=== PATIENT | female | born 1960 | race African-American/Black ===

== ENCOUNTER 2021-04-24 12:25 | Emergency (ER) | payer OTHER ==
[~2021-04-24] VITALS: Ht 149.9 cm; Wt 86.4 kg
[~2021-04-24 12:25] MED LIST: AMLO-257 PO
[2021-04-24] MEDS ORDERED: IBUPROFEN 600 MG TABLET PO ONE (14:15)
[2021-04-24 15:05] LABS: APPEARANCE,URINE CLEAR (CLEAR); BILIRUBIN,URINE NEGATIVE (NEGATIVE); GLUCOSE, URINE (UA) NEGATIVE (NEGATIVE); KETONES,URINE NEGATIVE (NEGATIVE); LEUKOCYTE ESTERASE ,URINE NEGATIVE (NEGATIVE); NITRATE,URINE NEGATIVE (NEGATIVE); OCCULT BLOOD,URINE NEGATIVE (NEGATIVE); PROTEIN,URINE NEGATIVE (NEGATIVE); UROBILINOGEN,URINE 0.2 mg/dL (<=1.0)
[2021-04-24 15:56] VITALS: BP 169/71
== END 2021-04-24 16:00 | disposition home or self-care (01) ==
LOC: EMS 12:31
DX: S66.011A Strain of long flexor muscle, fascia and tendon of right thumb at wrist and hand level, initial encounter (principal); S39.012A Strain of muscle, fascia and tendon of lower back, initial encounter; X58.XXXA Exposure to other specified factors, initial encounter; Y93.89 Activity, other specified; Y92.89 Other specified places as the place of occurrence of the external cause; Y99.8 Other external cause status
CPT/HCPCS: 81003; 99284

== ENCOUNTER 2021-05-24 10:57 | Emergency (ER) | payer OTHER ==
[~2021-05-24] VITALS: Ht 149.9 cm; Wt 95.5 kg
[2021-05-24 12:05] VITALS: BP 174/97
== END 2021-05-24 13:09 | disposition home or self-care (01) ==
LOC: EMS 10:57
DX: I10 Essential (primary) hypertension (principal); E78.00 Pure hypercholesterolemia, unspecified
CPT/HCPCS: 99281; Z7502

== ENCOUNTER 2023-01-09 15:57 | Emergency (ER) | payer OTHER ==
[~2023-01-09] VITALS: Ht 162.6 cm; Wt 93.2 kg
[2023-01-09] MEDS ORDERED: METO-408 PO (16:01)
[2023-01-09] MEDS ORDERED: ATOR20TA65 PO (16:01)
[2023-01-09] MEDS ORDERED: ESTR42.510 VG (16:01)
[2023-01-09 16:30] LABS: BASOPHILS % (AUTO) 0.6 % (0.0-2.0); EOSINOPHILS % (AUTO) 2.2 % (1.0-6.0); HEMATOCRIT 42.1 % (36-46); HEMOGLOBIN 13.5 g/dL (12.0-16.0); LYMPHOCYTES # (AUTO) 2.2 K/uL (1.0-4.8); MEAN CORPUSCULAR HEMOGLOBIN 27.2 pg (26.0-34.0); MEAN CORPUSCULAR HGB CONC 32.1 G/dL (31.0-37.0); MEAN CORPUSCULAR VOLUME 85 fL (80-100); MONOCYTES # (AUTO) 0.4 K/uL (0.1-1.0); MONOCYTES % (AUTO) 6.5 % (2.0-9.0); NEUTROPHILS # (AUTO) 3.8 K/uL (1.8-7.7); NEUTROPHILS % (AUTO) 57.7 % (40.0-70.0); PLATELET COUNT (AUTO) 233 K/uL (150-450); RED BLOOD CELL COUNT(AUTO) 4.97 MIL/uL (4.00-5.20); RED CELL DISTRIBUTION WIDTH 14.7 % (11.5-14.5)
[2023-01-09 16:40] LABS: ANION GAP 4 mmol/L (8-16); CALCIUM, TOTAL 9.9 mg/dL (8.8-10.5); CARBON DIOXIDE 30 mmol/L (22-29); CHLORIDE 100 mmol/L (98-107); CREATININE 0.79 mg/dL (0.60-1.30); GLOMERULAR FILTR. RATE CALC > 60 mL/min (>60); GLUCOSE,RANDOM 116 mg/dL (70-110); POTASSIUM 3.2 mmol/L (3.5-5.1); SODIUM SERUM 134 mmol/L (136-145); UREA NITROGEN, BLOOD 14 mg/dL (7-18)
[2023-01-09 16:45] LABS: ALANINE AMINOTRANSFERASE 11 U/L (12-78); ALBUMIN 4.1 g/dL (3.4-5.0); ALKALINE PHOSPHATASE 98 U/L (46-116); ASPARTATE AMINOTRANSFERASE 26 U/L (15-37); BILIRUBIN,TOTAL 0.4 mg/dL (0.1-1.0); CREATINE KINASE, TOTAL ONLY 126 U/L (26-192); TOTAL PROTEIN, SERUM 8.6 g/dL (6.4-8.2)
[2023-01-09 16:51] LABS: B-TYPE NATRIURETIC PEPTIDE 101 pg/mL (0-100)
[2023-01-09 19:00] VITALS: BP 165/87
== END 2023-01-09 19:08 | disposition home or self-care (01) ==
LOC: EMS 16:10
DX: I10 Essential (primary) hypertension (principal); E78.00 Pure hypercholesterolemia, unspecified
CPT/HCPCS: 71045; 80053; 82550; 83880; 84484; 85025; 93005; 99285; 36415-L1; 36415-TC